=== PATIENT | male | born 1960 | race Hispanic/Latino ===

== ENCOUNTER 2020-05-16 11:38 | Emergency (ER) | payer OTHER ==
[2020-05-16 11:44] VITALS: BP 148/108
[2020-05-16] MEDS ORDERED: IBUPROFEN 600 MG TAB PO ONE (11:56)
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
== END 2020-05-16 13:14 | disposition home or self-care (01) ==
LOC: ED 11:38
DX: S39.012A Strain of muscle, fascia and tendon of lower back, initial encounter (principal); E78.00 Pure hypercholesterolemia, unspecified; I10 Essential (primary) hypertension; Z79.899 Other long term (current) drug therapy; Z98.890 Other specified postprocedural states; V49.49XA Driver injured in collision with other motor vehicles in traffic accident, initial encounter; Y92.410 Unspecified street and highway as the place of occurrence of the external cause; Y93.89 Activity, other specified; Y99.8 Other external cause status
CPT/HCPCS: 72100